=== PATIENT | female | born 1990 | race Caucasian/White ===

== ENCOUNTER 2019-09-13 18:39 | Emergency (ER) | payer BC, MEDICAID ==
[2019-09-13 19:49] VITALS: BP 126/69
--- NOTE | 2019-09-13 19:55 | UC ---
Eye Complaint HPI - HPI Summary HPI Summary: Patient is a [age]yo female presenting with R eye irritation, crusting, and discharge x3 days. Patient states first began feeling sore on Friday and notes that she woke up with past few days with crusting of her eye. States that crusting was worse this morning and yellow discharge has continued to come out of the eye all day. Denies changes in vision. Notes some photophobia and itching. Denies URI symptoms. Denies L eye symptoms. Patient denies contact lens use. Denies seasonal/environmental allergies. - History of Current Complaint Chief Complaint: UCEye Stated Complaint: RIGHT EYE IRRITATION Hx Obtained From: Patient Onset/Duration: Gradual Onset, Lasting Days Timing: Constant Severity Initially: Mild Severity Currently: Mild Pain Intensity: 3 Pain Scale Used: 0-10 Numeric - Allergies/Home Medications Allergies/Adverse Reactions: Allergies Allergy/AdvReac Type Severity Reaction Status Date / Time No Known Allergies Allergy Verified 09/13/19 19:43 Home Medications: Home Medications 147/Iron/Folic Acid [Azesco Tablet] 1 each PO DAILY 09/13/19 [History Confirmed 09/13/19] PMH/Surg Hx/FS Hx/Imm Hx Previously Healthy: Yes - Surgical History Surgical History: Yes Surgery Procedure, Year, and Place: wisdom teeth extraction - Family History Known Family History: Positive: Non-Contributory - Social History Alcohol Use: None Substance Use Type: None Smoking Status (MU): Never Smoked Tobacco Review of Systems All Other Systems Reviewed And Are Negative: Yes Constitutional: Positive: Negative Eyes: Positive: Drainage - yellow drainage/crusting of R eye, Eye Redness - right, Photophobia - right. Negative: Blurred Vision, Diplopia ENT: Positive: Negative Respiratory: Positive: Negative Cardiovascular: Positive: Negative Neurological: Positive: Negative Physical Exam Triage Information Reviewed: Yes Appearance: Well-Appearing, No Pain Distress, Well-Nourished Vital Signs: Initial Vital Signs Temp 98.1 F 09/13/19 19:45 Pulse 86 09/13/19 19:45 Resp 16 09/13/19 19:45 BP 126/69 09/13/19 19:45 Pulse Ox 100 09/13/19 19:45 Vital Signs Reviewed: Yes Eye Exam: Other - PERRLA. EOM intact Eyes: Positive: Conjunctiva Inflamed - right, Discharge - yellow discharge noted in medial canthus of R eye and crusting noted in upper lashes. Neck: Positive: Supple Respiratory Exam: Normal Respiratory: Positive: Lungs clear, Normal breath sounds, No respiratory distress Cardiovascular Exam: Normal Cardiovascular: Positive: RRR Neurological: Positive: Alert Psychological: Positive: Age Appropriate Behavior Skin Exam: Normal - no erythema or ecchymosis Eye Complaint Course/Dx - Course Course Of Treatment: Treated patient with polytrim eye drops for treatment of bacterial conjunctivitis. Instructed to follow up with PCP or ophthalmology if symptoms persist. Patient voiced understanding and agreed with treatment plan. - Differential Dx/Diagnosis Provider Diagnosis: Bacterial conjunctivitis of right eye Discharge ED - Sign-Out/Discharge Documenting (check all that apply): Patient Departure All imaging exams completed and their final reports reviewed: No Studies - Discharge Plan Condition: Stable Disposition: HOME Prescriptions: Polymyx/Trimethoprim OPTH* [Polytrim OPHTH*] 1 - 2 drop RIGHT EYE BID 7 Days #1 btl Patient Education Materials: Conjunctivitis (ED) Referrals: Abena Marrero MD [Medical Doctor] - If Needed Rosa Segundo MD [Primary Care Provider] - If Needed Additional Instructions: Place 2 drops in the right eye twice daily for 7 days for treatment of your pink eye. Follow up with your PCP or the referral listed below if symptoms worsen or do not resolve within 7 days. - Billing Disposition and Condition Condition: STABLE Disposition: Home
== END 2019-09-13 20:19 | disposition home or self-care (01) ==
LOC: UCCORT 18:39
DX: H10.9 Unspecified conjunctivitis (principal); B96.89 Other specified bacterial agents as the cause of diseases classified elsewhere
CPT/HCPCS: 99212; G0463